=== PATIENT | male | born 1965 | race Asian ===

== ENCOUNTER 2021-05-11 14:53 | Emergency (ER) | payer BC ==
[~2021-05-11] VITALS: Ht 175.3 cm; Wt 108.9 kg
[2021-05-11 15:00] VITALS: BP 116/78; TEMP 97.8
== END 2021-05-11 16:05 | disposition home or self-care (01) ==
LOC: ED 14:53
PROC: 0JQP0ZZ Repair Left Lower Leg Subcutaneous Tissue and Fascia, Open Approach (ICD-10-PCS; principal; 2021-05-11)
DX: S81.812A Laceration without foreign body, left lower leg, initial encounter (principal); W26.8XXA Contact with other sharp object(s), not elsewhere classified, initial encounter; Y92.89 Other specified places as the place of occurrence of the external cause
CPT/HCPCS: 90471; 90715; 99283; J2001